=== PATIENT | male | born 1990 | race American Indian/Alaskan Native ===

== ENCOUNTER 2018-12-22 12:31 | Emergency (ER) | payer OTHER ==
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
[2018-12-22 13:37] VITALS: BP 147/85
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
== END 2018-12-22 14:09 | disposition home or self-care (01) ==
LOC: ED 12:31
DX: T21.12XA Burn of first degree of abdominal wall, initial encounter (principal); T79.9XXA Unspecified early complication of trauma, initial encounter; F17.200 Nicotine dependence, unspecified, uncomplicated; X15.8XXA Contact with other hot household appliances, initial encounter; Y93.89 Activity, other specified; Y92.89 Other specified places as the place of occurrence of the external cause; Y99.8 Other external cause status

== ENCOUNTER 2019-03-10 05:47 | Emergency (ER) | payer OTHER ==
[2019-03-10 06:22] LABS: Basophils # (Auto) 0.1 K/mm3 (0.0-0.1); Basophils % (Auto) 1.1 % (0.0-1.8); Eosinophils # (Auto) 0.3 K/mm3 (0.0-0.4); Eosinophils % (Auto) 3.7 % (0.0-4.3); Hemoglobin 15.1 gm/dl (11.8-15.2); Lymphocytes # (Auto) 2.2 K/mm3 (1.2-5.4); Lymphocytes % (Auto) 28.6 % (13.4-35.0); Mean Corpuscular HGB Conc 33 % (32-34); Mean Corpuscular Volume 88 fl (84-94); Monocytes # (Auto) 0.6 K/mm3 (0.0-0.8); Monocytes % (Auto) 7.5 % (0.0-7.3); Platelet Count 231 K/mm3 (140-440); Red Blood Count 5.26 M/mm3 (3.65-5.03); Red Cell Distribution Width 13.9 % (13.2-15.2)
--- NOTE | 2019-03-10 06:26 | XRay Report ---
PROCEDURE: XR CHEST 1V AP TECHNIQUE: Chest radiograph single view. HISTORY: Chest Pain COMPARISONS: None . FINDINGS: No mediastinal shift. Cardiac silhouette is not enlarged. No pneumothorax, effusion, or focal pulmona ry opacity identified. No acute skeletal findings. IMPRESSION: No acute pulmonary finding identified. This document is electronically signed by Wallace Walker MD., March 10 2019 06:23:28 AM ET
[2019-03-10 06:43] LABS: Alanine Aminotransferase 34 units/L (7-56); Albumin 4.2 g/dL (3.9-5); BUN/Creatinine Ratio 11; Blood Urea Nitrogen 9 mg/dL (9-20); Calcium 9.1 mg/dL (8.4-10.2); Hemolysis Index 8
[2019-03-10 06:43] LABS: Bilirubin,Urine NEG (Negative); Blood,Urine NEG (Negative); Color,Urine Yellow (Yellow); Mucus,Urine FEW /HPF; Protein,Urine <15 mg/dL mg/dL (Negative)
--- NOTE | 2019-03-10 08:43 | Emergency Department Report ---
ED Extremity Problem HPI - General Chief complaint: Extremity Problem,Nontraumatic Stated complaint: SWELLING BOTH FEET Time Seen by Provider: 03/10/19 08:38 Source: patient Mode of arrival: Ambulatory Limitations: No Limitations - History of Present Illness Initial comments: Patient is a 28-year-old male that presents emergency room with complaints of bilateral lower extremity edema that has been going on for many years. Patient states that they have been worsening over the last 2.5 weeks. Patient states that he's been noticing an increase in the size of his legs. Patient states that he is having some achiness to the lower extremities as well. Patient states the pain in his lower extremities and 1-2 out of 10. Patient states he also has dyspnea on exertion that has been going on for a long time. Patient denies chest pain. Patient denies fever and chills. Patient denies having a past medical history. Patient denies diabetes. Patient denies hypertension. Patient denies hyperlipidemia. Patient states she hasn't seen a doctor for many years. MD Complaint: extremity pain, extremity swelling -: Sudden Location: bilateral lower extremity History of Same: Yes Radiation: none Severity scale (0 -10): 1 Quality: aching Consistency: intermittent Improves with: elevation, rest Worsens with: walking, palpation - Related Data Previous Rx's Medication Instructions Recorded Last Taken Type methOCARBAMOL [Robaxin TAB] 500 mg PO BID #20 tab 08/31/18 Unknown Rx Cephalexin [Keflex] 500 mg PO BID #10 capsule 12/22/18 Unknown Rx Ibuprofen [Motrin 800 MG tab] 800 mg PO Q8HR #30 tablet 12/22/18 Unknown Rx SILVER sulfADIAZINE 50 GRAM 1 applicatio TP BID #1 tube 12/22/18 Unknown Rx [Thermazene 50 Gram] Furosemide [Lasix] 20 mg PO QDAY #10 tablet 03/10/19 Unknown Rx Allergies Allergy/AdvReac Type Severity Reaction Status Date / Time ants Allergy Swelling Uncoded 03/10/19 05:55 ED Review of Systems ROS: Stated complaint: SWELLING BOTH FEET Other details as noted in HPI Constitutional: denies: chills, fever Eyes: denies: eye pain, eye discharge, vision change ENT: denies: ear pain, throat pain Respiratory: SOB with exertion. denies: cough, shortness of breath, SOB at rest, wheezing Cardiovascular: dyspnea on exertion. denies: chest pain, palpitations Endocrine: no symptoms reported Gastrointestinal: denies: abdominal pain, nausea, diarrhea Genitourinary: denies: urgency, dysuria Musculoskeletal: denies: back pain, joint swelling, arthralgia Skin: denies: rash, lesions Neurological: denies: headache, weakness, paresthesias Psychiatric: denies: anxiety, depression Hematological/Lymphatic: denies: easy bleeding, easy bruising ED Past Medical Hx - Past Medical History Previous Medical History?: Yes Hx Asthma: Yes (as child) Additional medical history: epiglotitis - Surgical History Past Surgical History?: Yes Additional Surgical History: Tracheostomy - Family History Family history: no significant - Social History Smoking Status: Current Every Day Smoker Substance Use Type: None - Medications Home Medications: Home Medications Medication Instructions Recorded Confirmed Last Taken Type methOCARBAMOL [Robaxin TAB] 500 mg PO BID #20 tab 08/31/18 Unknown Rx Cephalexin [Keflex] 500 mg PO BID #10 capsule 12/22/18 Unknown Rx Ibuprofen [Motrin 800 MG tab] 800 mg PO Q8HR #30 tablet 12/22/18 Unknown Rx SILVER sulfADIAZINE 50 GRAM 1 applicatio TP BID #1 tube 12/22/18 Unknown Rx [Thermazene 50 Gram] Furosemide [Lasix] 20 mg PO QDAY #10 tablet 03/10/19 Unknown Rx ED Physical Exam - General Limitations: No Limitations General appearance: alert, in no apparent distress - Head Head exam: Present: atraumatic, normocephalic - Eye Eye exam: Present: normal appearance - ENT ENT exam: Present: mucous membranes moist - Neck Neck exam: Present: normal inspection - Respiratory Respiratory exam: Present: normal lung sounds bilaterally. Absent: respiratory distress, wheezes, rales - Cardiovascular Cardiovascular Exam: Present: regular rate, normal rhythm. Absent: systolic murmur, diastolic murmur, rubs, gallop - GI/Abdominal GI/Abdominal exam: Present: soft, normal bowel sounds - Rectal Rectal exam: Present: deferred - Extremities Exam Extremities exam: Present: normal inspection (except for bilateral lower extremities was significant edema.), pedal edema (4+ pitting edema noted to bilateral lower extremities extending to the patient's knees). Absent: calf tenderness - Back Exam Back exam: Present: normal inspection - Neurological Exam Neurological exam: Present: alert, oriented X3 - Psychiatric Psychiatric exam: Present: normal affect, normal mood - Skin Skin exam: Present: warm, dry, intact, normal color. Absent: rash ED Course Vital Signs 03/10/19 03/10/19 03/10/19 05:50 08:38 09:00 Temperature 97.9 F Pulse Rate 107 H 86 Respiratory 18 14 20 Rate Blood Pressure 204/103 Blood Pressure 169/80 [Left] O2 Sat by Pulse 99 97 97 Oximetry 03/10/19 03/10/19 03/10/19 10:00 11:08 12:06 Temperature Pulse Rate 85 78 95 H Respiratory 20 16 Rate Blood Pressure Blood Pressure 157/02 156/96 131/83 [Left] O2 Sat by Pulse 97 98 Oximetry - Reevaluation(s) Reevaluation #1: Tobacco abuse counseling done. Approximately 25 minutes spent discussing quitting options and how to quit and the risk of smoking with patient. 03/10/19 09:06 Patient states he is feeling better. Patient states he walked back and forth to the bathroom many times to urinate. Patient's artery had the IV Lasix. Patient's legs are 50% better. Discussed all results with patient. Patient is stable for discharge. Patient will be discharged home.. Patient agrees to plan of care.. Patient given discharge instructions. Patient voiced understanding of discharge instructions. 03/10/19 12:02 ED Medical Decision Making - Lab Data Result diagrams: 03/10/19 06:14 03/10/19 06:14 - EKG Data -: EKG Interpreted by Me EKG shows normal: sinus rhythm, axis, intervals, QRS complexes, ST-T waves Rate: normal - Radiology Data Radiology results: report reviewed, image reviewed interpreted by me: No acute findings on chest x-ray. PROCEDURE: XR CHEST 1V AP TECHNIQUE: Chest radiograph single view. HISTORY: Chest Pain COMPARISONS: None . FINDINGS: No mediastinal shift. Cardiac silhouette is not enlarged. No pneumothorax, effusion, or focal pulmonary opacity identified. No acute skeletal findings. IMPRESSION: No acute pulmonary finding identified. - Medical Decision Making H and is a 28-year-old male presents to emergency room with complaints of leg edema and dyspnea on exertion. Patient's symptoms improved with Lasix. Patient responded well to therapy. Patient legs decreased by 50% and edema. Patient has urinated multiple times. Patient's labs unremarkable. Patient stable for discharge. I discussed the patient's case with Dr. Jain, a local primary care and he states he will see the patient. Patient's EKG no acute findings. Patient's chest x-ray no acute findings and negative for CHF changes. - Differential Diagnosis volume overload. Lymphedema. Leg edema. Dyspnea on exertion. Critical care attestation.: If time is entered above; I have spent that time in minutes in the direct care of this critically ill patient, excluding procedure time. ED Disposition Clinical Impression: Leg edema, KHAN (dyspnea on exertion), Tobacco abuse counseling, Tobacco abuse Obesity Qualifiers: Obesity type: due to excess calories Obesity classification: unspecified obesity classification Serious obesity comorbidity presence: without serious comorbidity Qualified Code(s): E66.09 - Other obesity due to excess calories Leg pain Qualifiers: Laterality: bilateral Qualified Code(s): M79.604 - Pain in right leg Hypertension Qualifiers: Hypertension type: essential hypertension Qualified Code(s): I10 - Essential (primary) hypertension Disposition: TO HOME OR SELFCARE Is pt being admited?: No Does the pt Need Aspirin: No Condition: Stable Instructions: Leg Edema (ED), DASH Eating Plan (ED), Low Sodium Diet (ED), Hypertension (ED) Additional Instructions: Patient to follow-up with primary care in 2-3 days. Patient eat a low-salt diet. Patient to monitor blood pressure. Patient to stop smoking. Patient to see Dr. Jain within 2-3 days. Patient to return to ER if condition worsens. Pa tient to take meds as directed. Patient to increase water. Patient to rest. Prescriptions: Furosemide [Lasix] 20 mg PO QDAY #10 tablet Referrals: HEDY JAIN MD [Staff Physician] - 2-3 Days Time of Disposition: 12:08
[2019-03-10] MEDS ORDERED: LASIX IV ONE (08:45)
[2019-03-10] MEDS ORDERED: APRESOLINE IV ONE (08:45)
--- NOTE | 2019-03-10 11:20 | Vascular Lab Report ---
PROCEDURE: VL VENOUS DUPLEX LE BILAT TECHNIQUE: Duplex Doppler ultrasound of the veins of the bilateral lower extremities was performed. HISTORY: PAIN. SWELLING COMPARISONS: None. FINDINGS: Evaluation is severely limited due to patient body habitus. The veins of the bilateral calves are not visualized. The bilateral common femoral veins, superficial femoral veins, and popliteal veins are patent. IMPRESSION: No visualized deep venous thrombosis, however, the veins of the calf are not visualized bilaterally, due to the patient's body habitus. This document is electronically signed by Rhianna Vargas MD., March 10 2019 11:17:58 AM ET
[2019-03-10 12:08] VITALS: BP 131/83
== END 2019-03-10 12:31 | disposition home or self-care (01) ==
LOC: ED 05:47
DX: R60.0 Localized edema (principal); E66.09 Other obesity due to excess calories; I10 Essential (primary) hypertension; J45.909 Unspecified asthma, uncomplicated; F17.200 Nicotine dependence, unspecified, uncomplicated; Z71.6 Tobacco abuse counseling; Z91.038 Other insect allergy status
CPT/HCPCS: 36415; 71045; 80053; 81001; 84484; 85025; 93005; 93010; 93970; 96374; 99285; J1940

== ENCOUNTER 2019-04-07 23:24 | Emergency (ER) | payer SELFPAY ==
--- NOTE | 2019-04-08 00:43 | XRay Report ---
CHEST 2 VIEWS INDICATION / CLINICAL INFORMATION: cough. COMPARISON: 03/10/2019 FINDINGS: SUPPORT DEVICES: None. HEART / MEDIASTINUM: No significant abnormality. LUNGS / PLEURA: No significant pulmonary or pleural abnormality. No pneumothorax. ADDITIONAL FINDINGS: No significant additional findings. IMPRESSION: 1. No acute findings. Signer Name: Kavon López MD Signed: 04/08/2019 12:39 AM Workstation Name: [id number]
--- NOTE | 2019-04-08 01:36 | Emergency Department Report ---
ED General Adult HPI - General Chief complaint: Sore Throat Stated complaint: POSSIBLE PINK EYE SORE THROAT Source: patient Mode of arrival: Ambulatory Limitations: No Limitations - History of Present Illness Initial comments: This is a 28-year-old female presents to emergency room with burning and redness to both eyes upon awakening. He reports crusting to both eyes upon awakening. He reports sore throat for 3 days with fever, chills, cough, nausea or vomiting. Past medical history of asthma. Patient states he stopped smoking in 1 week ago and sick every since. He also reports sick contacts. He is currently taking cold and flu medication with minimal improvement of symptoms. He denies chest pain, visual changes, fever, or diarrhea. Onset/Timin -: days(s) Location: face (eyes), mouth (throat) Radiation: non-radiation Severity scale (0 -10): 8 Quality: aching Consistency: constant Improves with: none Worsens with: eating Associated Symptoms: cough, fever/chills, nausea/vomiting. denies: confusion, chest pain, diaphoresis, headaches, loss of appetite, malaise, rash, seizure, shortness of breath, syncope, weakness Treatments Prior to Arrival: NSAID - Related Data Previous Rx's Medication Instructions Recorded Last Taken Type methOCARBAMOL [Robaxin TAB] 500 mg PO BID #20 tab 08/31/18 Unknown Rx Cephalexin [Keflex] 500 mg PO BID #10 capsule 12/22/18 Unknown Rx Ibuprofen [Motrin 800 MG tab] 800 mg PO Q8HR #30 tablet 12/22/18 Unknown Rx SILVER sulfADIAZINE 50 GRAM 1 applicatio TP BID #1 tube 12/22/18 Unknown Rx [Thermazene 50 Gram] Furosemide [Lasix] 20 mg PO QDAY #10 tablet 03/10/19 Unknown Rx Dextromethorphan/Benzocaine 1 each PO Q2H PRN #20 lozenge 04/08/19 Unknown Rx [Cepacol Sorethroat-Cough Mariano] Erythromycin [Erythromycin Ophth 10 applic OP DAILY 7 Days #1 tube 04/08/19 Unkn own Rx Oint] methylPREDNISolone [Medrol 4MG 4 mg PO DAILY #1 tab.ds.pk 04/08/19 Unknown Rx DOSEPAK (21 tabs)] Allergies Allergy/AdvReac Type Severity Reaction Status Date / Time ants Allergy Swelling Uncoded 03/10/19 05:55 ED Review of Systems ROS: Stated complaint: POSSIBLE PINK EYE SORE THROAT Other details as noted in HPI Constitutional: chills. denies: fever Eyes: eye pain, eye discharge. denies: vision change ENT: throat pain, congestion. denies: ear pain, dental pain, hearing loss, epistaxis Respiratory: cough. denies: shortness of breath, wheezing Cardiovascular: denies: chest pain, palpitations Gastrointestinal: nausea, vomiting. denies: abdominal pain, diarrhea Musculoskeletal: denies: back pain, joint swelling, arthralgia Skin: denies: rash, lesions Neurological: denies: headache, weakness, paresthesias Psychiatric: denies: anxiety, depression ED Past Medical Hx - Past Medical History Previous Medical History?: Yes Hx Asthma: Yes (as child) Additional medical history: epiglotitis, Morbid Obesity - Surgical History Past Surgical History?: Yes Additional Surgical History: Tracheostomy - Social History Smoking Status: Never Smoker Substance Use Type: None - Medications Home Medications: Home Medications Medication Instructions Recorded Confirmed Last Taken Type methOCARBAMOL [Robaxin TAB] 500 mg PO BID #20 tab 08/31/18 Unknown Rx Cephalexin [Keflex] 500 mg PO BID #10 capsule 12/22/18 Unknown Rx Ibuprofen [Motrin 800 MG tab] 800 mg PO Q8HR #30 tablet 12/22/18 Unknown Rx SILVER sulfADIAZINE 50 GRAM 1 applicatio TP BID #1 tube 12/22/18 Unknown Rx [Thermazene 50 Gram] Furosemide [Lasix] 20 mg PO QDAY #10 tablet 03/10/19 Unknown Rx Dextromethorphan/Benzocaine 1 each PO Q2H PRN #20 lozenge 04/08/19 Unknown Rx [Cepacol Sorethroat-Cough Mariano] Erythromycin [Erythromycin Ophth 10 applic OP DAILY 7 Days #1 tube 04/08/19 Unknown Rx Oint] methylPREDNISolone [Medrol 4MG 4 mg PO DAILY #1 tab.ds.pk 04/08/19 Unknown Rx DOSEPAK (21 tabs)] ED Physical Exam - General Limitations: No Limitations General appearance: alert, in no apparent distress, obese (morbidly) - Eye Eye exam: Present: PERRL, EOMI, conjunctival injection (bilaterally with crusting to upper eyelid). Absent: scleral icterus, nystagmus, periorbital swelling, periorbital tenderness Pupils: Present: normal accommodation - ENT ENT exam: Present: mucous membranes moist, other (turbinates mildly congested with clear discharge). Absent: normal orophraynx (erythematous and enlarged tonsils without exudate, uvula midline) - Neck Neck exam: Present: normal inspection - Respiratory Respiratory exam: Present: normal lung sounds bilaterally. Absent: respiratory distress - Cardiovascular Cardiovascular Exam: Present: regular rate, normal rhythm. Absent: systolic murmur, diastolic murmur, rubs, gallop - GI/Abdominal GI/Abdominal exam: Present: soft, normal bowel sounds - Neurological Exam Neurological exam: Present: alert, oriented X3 - Psychiatric Psychiatric exam: Present: normal affect, normal mood - Skin Skin exam: Present: warm, dry, intact, normal color. Absent: rash ED Course Vital Signs 04/07/19 23:50 Temperature 98.3 F Pulse Rate 102 H Respiratory 22 Rate Blood Pressure 169/93 ED Medical Decision Making - Lab Data Lab Results 04/07/19 Range/Units Unknown Group A Strep Rapid Negative (Negative) - Radiology Data Radiology results: report reviewed CHEST 2 VIEWS INDICATION / CLINICAL INFORMATION: cough. COMPARISON: 03/10/2019 FINDINGS: SUPPORT DEVICES: None. HEART / MEDIASTINUM: No significant abnormality. LUNGS / PLEURA: No significant pulmonary or pleural abnormality. No pneumothorax. ADDITIONAL FINDINGS: No significant additional findings. IMPRESSION: 1. No acute findings. - Medical Decision Making Patient is stable and was examined by me. Vitals normal. Obtained a rapid strep and chest x-ray. Strep test negative and chest x-ray dictated per radiologist with no acute cardiopulmonary findings. Symptoms are susceptible of bilateral conjunctivitis and acute pharyngitis. Start erythromycin, Medrol Dosepak, Cepacol, and naproxen. Discussed plan with patient who agreed with plan. Discharged home in stable condition. Follow up with PCP in 24-72 hours. Critical care attestation.: If time is entered above; I have spent that time in minutes in the direct care of this critically ill patient, excluding procedure time. ED Disposition Clinical Impression: Sore throat, Acute viral pharyngitis Conjunctivitis Qualifiers: Conjunctivitis type: acute Acute conjunctivitis type: bacterial Laterality: bilateral Qualified Code(s): H10.33 - Unspecified acute conjunctivitis, bilateral Disposition: DC- TO HOME OR SELFCARE Is pt being admited?: No Does the pt Need Aspirin: No Condition: Stable Instructions: Conjunctivitis (ED), Pharyngitis (ED) Additional Instructions: Marye is very contagious so please wash hands frequently. Don't share any towels or bedding to prevent spread of infection. Use cool compress to each eye to decrease swelling. Avoid rubbing or touching eyes, because rubbing eyes can cause worsening symptoms. Expect symptoms to improve within 3 or 4 days. There is no need for bed rest or isolation. Use Tylenol or ibuprofen for symptoms of sore throat, headache, and fever. Follow up with Primary Care Provider in 48-72 hours.Return to ER if swelling don't improve or difficulty breathing after 2 days of medication. Prescriptions: Dextromethorphan/Benzocaine [Cepacol Sorethroat-Cough Mariano] 1 each PO Q2H PRN #20 lozenge PRN Reason: Sore Throat Erythromycin [Erythromycin Ophth Oint] 10 applic OP DAILY 7 Days #1 tube methylPREDNISolone [Medrol 4MG DOSEPAK (21 tabs)] 4 mg PO DAILY #1 tab.ds.pk Referrals: DYLON GRAJEDAFONTANA MD YISSEL [Primary Care Provider] - 3-5 Days [facility] [place] [Outside] - 3-5 Days [facility] [Outside] - 3-5 Days Forms: Work/School Release Form(ED) Time of Disposition: 01:48
[2019-04-08 01:59] VITALS: BP 131/85
== END 2019-04-08 01:50 | disposition home or self-care (01) ==
LOC: ED 23:24
DX: J02.9 Acute pharyngitis, unspecified (principal); H10.33 Unspecified acute conjunctivitis, bilateral; J45.909 Unspecified asthma, uncomplicated; E66.01 Morbid (severe) obesity due to excess calories; Z68.44 Body mass index [BMI] 60.0-69.9, adult; Z93.0 Tracheostomy status; Z79.1 Long term (current) use of non-steroidal anti-inflammatories (NSAID); Z79.899 Other long term (current) drug therapy
CPT/HCPCS: 71046; 87116; 87430; 99283